=== PATIENT | male | born 1955 | race Caucasian/White ===

== ENCOUNTER → 2017-06-29 | Outpatient (CLI) | payer BC ==
[~2017-06-29] MED LIST: AMLODIPINE BESY10 M1 PO; BACTRIM DS 8001 TAB PO; DICLOFENAC SODI75 M3 PO; ENALAPRIL HCTZ PO; GABAPENTIN 400400 M1 PO; KEFLEX 500MG.500 MG PO
[2017-06-29 07:43] LABS: LYMPH # 2.1 K/mm3 (0.7-4.5); LYMPH % 19.5 % (10-50)
[2017-06-29 07:49] LABS: HEMOGLOBIN 16.1 g/dL (14.1-18.0)
[2017-06-29 09:04] LABS: BUN 21 mg/dL (7-18)
[2017-06-29 09:19] LABS: GFR (ESTIMATED) 62 ML/MIN (>60)
[2017-06-30 11:57] LABS: PROSTATE-SPECIFIC ANTIGEN F/U 0.5 ng/mL (0.0-4.0)
== END ==
LOC: LAB 07:02
PROVIDERS: Internal Medicine
DX: I10 Essential (primary) hypertension (principal); E78.5 Hyperlipidemia, unspecified; E66.9 Obesity, unspecified; R25.2 Cramp and spasm; R39.12 Poor urinary stream
CPT/HCPCS: G0103

== ENCOUNTER → 2017-07-07 | Outpatient (CLI) | payer BC | LOC: UTC.OUT 17:50 | DX: Z02.4 Encounter for examination for driving license (principal) ==